=== PATIENT | male | born 1980 | race Caucasian/White ===

== ENCOUNTER 2019-04-07 22:49 | Emergency (ER) | payer MEDICAID, OTHER ==
[~2019-04-07] VITALS: Ht 162.6 cm; Wt 81.1 kg
[~2019-04-07 22:49] MED LIST: CEPH-443 PO; IBUP-1542 PO
[2019-04-07 22:52] VITALS: BP 134/89; PULSE 84; RESP 18; Ht 162.6 cm; Wt 81.1 kg
[2019-04-07] MEDS ORDERED: HYDROCODONE/APAP (5/325) TAB PO ONE (23:30)
[2019-04-07] MEDS ORDERED: DIPHTH/TET/ACEL PERTUSS (ADULT) 0.5 ML VIAL IM* ONE (23:30)
== END 2019-04-08 02:08 | disposition home or self-care (01) ==
LOC: FTE 22:49
DX: S61.233A Puncture wound without foreign body of left middle finger without damage to nail, initial encounter (principal); W45.8XXA Other foreign body or object entering through skin, initial encounter; Y92.9 Unspecified place or not applicable; Z23 Encounter for immunization
CPT/HCPCS: 73130; 90471; 90715; Z7502; Z7610